=== PATIENT | female | born 1990 | race Caucasian/White ===

== ENCOUNTER 2017-07-25 00:40 | Emergency (ER) | payer OTHER ==
[~2017-07-25] VITALS: Ht 175.3 cm; Wt 95.3 kg
--- OUTSIDE RECORDS SUMMARY | 2017-07-25 00:49 | XMS REPORT ---
Author JODI Sierra [facility] eClinicalWorks Address Unknown Phone Unavailable Care Team Providers Care Frickertron Checker Name Role Phone JODI DAVIS Unavailable Allergies No Known Allergies Problems Problem Type Condition Code Onset Dates Condition Status Assessment Encounter for PPD test V74.1 Active Medications No Known Medications Procedures Procedure Coding System Code Date TB INTRADERMAL TEST CPT-4 62730 Nov 04, 2014 Results Name Result Date Reference Range Unit Abnormality Flag TB INTRADERMAL Summary Purpose eClinicalWorks Submission
--- OUTSIDE RECORDS SUMMARY | 2017-07-25 00:49 | XMS REPORT ---
Author JODI Sierra [facility] eClinicalWorks Address Unknown Phone Unavailable Care Team Providers Care Bio Medical Technician Name Role Phone JODI DAVIS Unavailable Allergies No Known Allergies Problems Problem Type Condition Code Onset Dates Condition Status Problem Obesity E66.9 Active Problem Irregular periods N92.6 Active Problem Well woman exam Z01.419 Active Assessment Encounter for immunization Z23 Active Medications No Known Medications Procedures Procedure Coding System Code Date SINGLE IMMUNIZATION ADMIN CPT-4 61913 Nov 10, 2015 FLUARIX QUAD P-FREE 3 AND UP .50 2015 CPT-4 81866 Nov 10, 2015 Results No Known Results Immunizations Vaccine Administration Date FLUARIX QUAD P-FREE 3 AND UP .50 2015Nov 10, 2015 Summary Purpose eClinicalWorks Submission
--- OUTSIDE RECORDS SUMMARY | 2017-07-25 00:49 | XMS REPORT ---
Author JODI Sierra [facility] eClinicalWorks Address Unknown Phone Unavailable Care Team Providers Care Rehab Trainer Name Role Phone JODI DAVIS CP Unavailable Allergies, Adverse Reactions, Alerts Substance Reaction Event Type Penicillin V Potassium hives Drug Allergy Problems Problem Type Condition Code Onset Dates Condition Status Assessment Thyroid disorder screen Z13.29 Active Assessment Obesity E66.9 Active Assessment Irregular menses N92.6 Active Medications No Known Medications Procedures Procedure Coding System Code Date COMPREHEN METABOLIC PANEL CPT-4 06999 Feb 11, 2015 GLYCATED HEMOGLOBIN TEST CPT-4 66935 Feb 11, 2015 COMPLETE CBC W/AUTO DIFF WBC CPT-4 69842 Feb 11, 2015 ASSAY THYROID STIM HORMONE CPT-4 90683 Feb 11, 2015 LIPID PANEL CPT-4 46840 Feb 11, 2015 VENIPUNCT, ROUTINE* CPT-4 53539 Feb 11, 2015 Office Visit, Est Pt., Level 3 CPT-4 92305 Feb 11, 2015 Vital Signs Date/Time: Feb 11, 2015 Temperature 99.5 F Weight 237.4 lbs Height 66.5 in BMI 37.74 Index Blood Pressure Diastolic 82 mmHg Blood Pressure Systolic 118 mmHg Cardiac Monitoring Heart Rate 92 bpm Results No Known Results Summary Purpose eClinicalWorks Submission
--- OUTSIDE RECORDS SUMMARY | 2017-07-25 00:49 | XMS REPORT ---
Author Author SADNEE PERALTA Organization eClinicalWorks Address Unknown Phone Unavailable Care Team Providers Care Grading Supervisor Name Role Phone SANDEE PERALTA CP Unavailable Allergies No Known Allergies Problems Problem Type Condition Code Onset Dates Condition Status Assessment Encounter for immunization Z23 Active Medications No Known Medications Procedures Procedure Coding System Code Date SINGLE IMMUNIZATION ADMIN CPT-4 07600 Dec 18, 2014 FLUARIX QUAD (3 & UP)-GSK-2014 CPT-4 29691 Dec 18, 2014 Results No Known Results Immunizations Vaccine Administration Date FLUARIX QUAD (3 & UP)-GSK-2014Dec 18, 2014 Summary Purpose eClinicalWorks Submission
--- OUTSIDE RECORDS SUMMARY | 2017-07-25 00:49 | XMS REPORT ---
Author Author TANYA Hendrix Organization [facility] Address [address] [place] [address] Care Team Providers Care Stock Roller Name Role Phone TANYA Hendrix Unavailable PROBLEMS Type Condition ICD9-CM Code [id number] Code Onset Dates Condition Status SNOMED Code Problem Well woman exam Z01.419 Active 067261983 Problem Obesity E66.9 Active 947451621 Problem Irregular periods N92.6 Active 41826257 ALLERGIES Substance Reaction Event Type Date Status Penicillin V Potassium hives Drug Allergy Nov, Active ENCOUNTERS Encounter Location Date Diagnosis [facility] [address] [id number] [address] Nov, Acute bacterial conjunctivitis of right eye H10.31 [facility] [address] [id number][place] [id number] Nov, [facility] [address] [id number], [place] [id number] Oct, Encounter for immunization Z23 [facility] [address] [id number], [place] [phone] Oct, Visit for TB skin test Z11.1 [facility] [address] [id number], [place] [phone] Nov, Encounter for immunization Z23 [facility] [address] [id number], [place] [id number] Mar, [facility] [address] [id number][place] [id number] Mar, Well woman exam Z01.419 ; Obesity E66.9 and Irregular periods N92.6 [facility] [address] [id number], [place] [id number] Feb, Irregular menses N92.6 ; Thyroid disorder screen Z13.29 and Obesity E66.9 [facility] [address] [id number][place] [id number] Dec, Encounter for immunization Z23 [facility] [address] [id number], [place] [id number] 30 Oct, 2014 Encounter for PPD test V74.1 [facility] FLORESMASSEY [address] [place] [address] [id number], [place] [phone] Oct, Encounter for PPD test V74.1 [facility] [address] [place] [address] [place] [id number], [place] [id number] Oct, School physical exam V70.5 [facility] [address]ach[address] [place] [address] [place] [id number][place] [phone] Sep, Initiation of OCP (BCP) V25.01 IMMUNIZATIONS No Known Immunizations SOCIAL HISTORY Never Assessed REASON FOR VISIT right eye itching and burning and red. been like this for 2 days. pt reports it has green tinged crust in it and was matted shut this am. [email or web address] PLAN OF CARE Activity Details Follow Up prn Reason: VITAL SIGNS Height 66.5 in 2016-11-14 Weight 235.6 lbs 2016-11-14 Temperature 97.9 degrees Fahrenheit 2016-11-14 Heart Rate 80 bpm 2016-11-14 Respiratory Rate 20 2016-11-14 BMI 37.45 kg/m2 2016-11-14 Blood pressure systolic 118 mmHg 2016-11-14 Blood pressure diastolic 76 mmHg 2016-11-14 MEDICATIONS Medication Instructions Dosage Frequency Start Date End Date Duration Status Polytrim 59598-8.1 UNIT/ML Ophthalmic Four times a day 1 drop into affected eye 6h Nov, Nov, 7 days Active RESULTS No Results PROCEDURES No Known procedures INSTRUCTIONS MEDICATIONS ADMINISTERED No Known Medications MEDICAL (GENERAL) HISTORY Type Description Date Hospitalization History childbirth only
--- OUTSIDE RECORDS SUMMARY | 2017-07-25 00:50 | XMS REPORT ---
Author JODI Sierra [facility] eClinicalWorks Address Unknown Phone Unavailable Care Team Providers Care Clinical Tech Name Role Phone JODI DAVIS CP Unavailable Allergies, Adverse Reactions, Alerts Substance Reaction Event Type Penicillin V Potassium hives Drug Allergy Problems Problem Type Condition Code Onset Dates Condition Status Problem Obesity E66.9 Active Problem Irregular periods N92.6 Active Problem Well woman exam Z01.419 Active Assessment Irregular periods N92.6 Active Assessment Well woman exam Z01.419 Active Assessment Obesity E66.9 Active Medications No Known Medications Procedures Procedure Coding System Code Date Preventive Care Est Pt. Age 18-39 CPT-4 18331 Mar 19, 2015 SPECIMEN HANDLING CPT-4 26671 Mar 19, 2015 Vital Signs Date/Time: Mar 19, 2015 Temperature 98.5 F Weight 236.3 lbs Height 66.5 in BMI 37.56 Index Blood Pressure Diastolic 88 mmHg Blood Pressure Systolic 126 mmHg Cardiac Monitoring Heart Rate 77 bpm Results No Known Results Summary Purpose eClinicalWorks Submission
--- OUTSIDE RECORDS SUMMARY | 2017-07-25 00:50 | XMS REPORT ---
Author Author YOSI BROWN Organization eClinicalWorks Address Unknown Phone Unavailable Care Team Providers Care Jigmaker Name Role Phone YOSI BROWN CP Unavailable Allergies, Adverse Reactions, Alerts Substance Reaction Event Type Penicillin V Potassium hives Drug Allergy Problems Problem Type Condition ICD-9 Code Onset Dates Condition Status Assessment School physical exam V70.5 Active Medications Medication Code System Code Instructions Start Date End Date Status Dosage Sprintec [address] [facility] [address]-12 0.25-35 MG-MCG Orally Once a day Sep 23, 2014 1 tablet Procedures Procedure Coding System Code Date Preventive Care Est Pt. Age 18-39 CPT-4 78340 Oct 16, 2014 Vital Signs Date/Time: Oct 16, 2014 Temperature 97.6 F Weight 222.9 lbs Height 66.5 in BMI 35.43 Index Blood Pressure Diastolic 68 mmHg Blood Pressure Systolic 108 mmHg Cardiac Monitoring Heart Rate 74 bpm Results No Known Results Summary Purpose eClinicalWorks Submission
--- OUTSIDE RECORDS SUMMARY | 2017-07-25 00:50 | XMS REPORT ---
Author Author JODI DAVIS [facility]Nearbuyme TechnologiesMAS[facility] Address [address] [place] [address] Care Team Providers Care Multi Slide Machine Tender Name Role Phone JODI DAVIS Unavailable PROBLEMS Type Condition ICD9-CM Code [id number] Code Onset Dates Condition Status SNOMED Code Problem Irregular periods N92.6 Active 72113187 Problem Obesity E66.9 Active 079703762 Problem Well woman exam Z01.419 Active 235380230 ALLERGIES No Information ENCOUNTERS Encounter Location Date Diagnosis [facility] [address] [facility] [id number] [address] Nov, Acute bacterial conjunctivitis of right eye H10.31 [facility] [address] [id number] [place] [id number] Nov, [facility] [address] [id number] [place] [phone] Oct, Encounter for immunization Z23 [facility] [address] [id number] [place] [phone] Oct, Visit for TB skin test Z11.1 [facility]lass[facility] [address] [id number] [place] [phone] Nov, Encounter for immunization Z23 [facility] [address] [id number] [place] [id number] Mar, [facility] [address] [id number] [place] [phone] Mar, Well woman exam Z01.419 ; Obesity E66.9 and Irregular periods N92.6 [facility] [address] [id number] [place] [id number] Feb, Irregular menses N92.6 ; Thyroid disorder screen Z13.29 and Obesity E66.9 [facility] [address] [id number] [place] [phone] Dec, Encounter for immunization Z23 [facility] [address] [id number] [place] [id number] 30 Oct, 2014 Encounter for PPD test V74.1 [facility] S[facility]THM[facility]ridion [address] [id number] [place] [phone] Oct, Encounter for PPD test V74.1 [facility] SOUTHNearbuyme TechnologiesMASSEY [address] [place] [address] AV [id number] [place] [id number] 11 Oct, 2014 School physical exam V70.5 [facility] SOUTHNearbuyme TechnologiesMASSEY [employer] [place] [address] [place] [id number] [place] [phone] Sep, Initiation of OCP (BCP) V25.01 IMMUNIZATIONS No Known Immunizations SOCIAL HISTORY Never Assessed REASON FOR VISIT Triage Jayshree PALENCIA PLAN OF CARE VITAL SIGNS MEDICATIONS No Known Medications RESULTS No Results PROCEDURES No Known procedures INSTRUCTIONS MEDICATIONS ADMINISTERED No Known Medications MEDICAL (GENERAL) HISTORY Type Description Date Hospitalization History childbirth only
--- OUTSIDE RECORDS SUMMARY | 2017-07-25 00:50 | XMS REPORT ---
Author Author JODI DAVIS [facility] CenterLumi ShanghaiMASSEY Address [address] [place] [address] Care Team Providers Care Die Casting Machine Operator Name Role Phone JODI DAVIS Unavailable PROBLEMS Type Condition ICD9-CM Code MHU51-JM Code Onset Dates Condition Status SNOMED Code Problem Irregular periods N92.6 Active 56033893 Problem Obesity E66.9 Active 766001025 Problem Well woman exam Z01.419 Active 081087521 ALLERGIES No Information ENCOUNTERS Encounter Location Date Diagnosis [facility] [address] [facility] [id number] [address] Nov, Acute bacterial conjunctivitis of right eye H10.31 [facility] [address] [id number], [place] [id number] Nov, [facility] [address] [facility] [address] [id number], [place] [id number] Oct, Encounter for immunization Z23 [facility]ITAL[facility] [address] [facility] [address] [id number], [place] [phone] Oct, Visit for TB skin test Z11.1 [facility]ITAL[facility]endixTER [address] [facility] [address] [id number], [place] [phone] Nov, Encounter for immunization Z23 [facility] [address] [id number], [place] [id number] Mar, [facility] [address] [id number], [place] [id number] Mar, Well woman exam Z01.419 ; Obesity E66.9 and Irregular periods N92.6 [facility] [address] [id number], [place] [phone] Feb, Irregular menses N92.6 ; Thyroid disorder screen Z13.29 and Obesity E66.9 [facility] [address] [facility] [address] [id number], [place] [phone] Dec, Encounter for immunization Z23 [facility]PITALHIGINIO [facility] [address] [facility] [address] [id number], [place] [id number] 30 Oct, 2014 Encounter for PPD test V74.1 [facility]OSPITALLumi ShanghaiMASSEY [address] [facility] [address] [id number], [place] [id number] 28 Oct, 2014 Encounter for PPD test V74.1 [facility] HOSPITALLumi ShanghaiMASSEY [address] [place] [address] [place] [id number], [place] [id number] 11 Oct, 2014 School physical exam V70.5 [facility]OSPITALLumi ShanghaiMASSEY [employer] [place] [address] AV [id number], [place] [phone] Sep, Initiation of OCP (BCP) V25.01 IMMUNIZATIONS Vaccine Route Administration Date Status FLUARIX QUAD (3 AND UP) 2017 IM Intramuscular Oct 25, 2016 Administered SOCIAL HISTORY Never Assessed REASON FOR VISIT Flu shot Jose PALENCIA PLAN OF CARE VITAL SIGNS MEDICATIONS No Known Medications RESULTS No Results PROCEDURES Procedure Date Ordered Result Body Site FLUARIX QUAD (3 & UP)-GSK-2014Oct 25, 2016 SINGLE IMMUNIZATION ADMIN Oct 25, 2016 INSTRUCTIONS MEDICATIONS ADMINISTERED No Known Medications MEDICAL (GENERAL) HISTORY Type Description Date Hospitalization History childbirth only
--- OUTSIDE RECORDS SUMMARY | 2017-07-25 00:50 | XMS REPORT ---
Author Author JODI DAVIS [facility] Power MagicMASSEY Address [address] [place] [address] Care Team Providers Care Unindentured Apprentice Name Role Phone JODI DAVIS Unavailable PROBLEMS Type Condition ICD9-CM Code IDO60-WO Code Onset Dates Condition Status SNOMED Code Problem Irregular periods N92.6 Active 31743506 Problem Obesity E66.9 Active 187400987 Problem Well woman exam Z01.419 Active 639664484 ALLERGIES No Information ENCOUNTERS Encounter Location Date Diagnosis [facility] LIMAYohobuy [facility] [address] [facility] [id number], [place] [address] Nov, Acute bacterial conjunctivitis of right eye H10.31 [facility]ES[facility] [address] [id number] GARD[place], [place] [id number] Nov, [facility] [address] [id number] [place]ARD[place] [id number] Oct, Encounter for immunization Z23 [facility]ENTERSuperSonic ImagineTER [address] [id number] GARDEN, [place] [id number] Oct, Visit for TB skin test Z11.1 [facility]ENTERSuperSonic ImagineTER [address] [id number] GARDEN, [place] [phone] Nov, Encounter for immunization Z23 [facility] [address] [id number] [place] [id number] Mar, [facility] [address] [id number] GARDEN, [place] [phone] Mar, Well woman exam Z01.419 ; Obesity E66.9 and Irregular periods N92.6 [facility] [address] [id number] GARDEN[place] [id number] Feb, Irregular menses N92.6 ; Thyroid disorder screen Z13.29 and Obesity E66.9 [facility] [address] [id number] GARDEN[place] [phone] Dec, Encounter for immunization Z23 [facility]ENTERHIGINIO [address] [id number] [place]ARD[place], [place] [id number] 30 Oct, 2014 Encounter for PPD test V74.1 [facility] LIMASurya Power MagicMASSEY [address] [id number] [place]ARDEN, [place] [phone] Oct, Encounter for PPD test V74.1 [facility] LIMASurya Power MagicMASSEY [address] [place] [address] [place] [id number] [place]ARDEN, [place] [id number] 11 Oct, 2014 School physical exam V70.5 [facility] LIMASurya Power MagicMASSEY [employer] [place] [address] [place] [id number] [place]ARD[place], [place] [id number] Sep, Initiation of OCP (BCP) V25.01 IMMUNIZATIONS No Known Immunizations SOCIAL HISTORY Never Assessed REASON FOR VISIT TB Skin test. Jayshree PALENCIA PLAN OF CARE Activity Details Follow Up 48-72 hours Reason: VITAL SIGNS MEDICATIONS No Known Medications RESULTS No Results PROCEDURES Procedure Date Ordered Result Body Site TB INTRADERMAL 2016-10-23 N/A TB INTRADERMAL TEST Oct 23, 2016 INSTRUCTIONS MEDICATIONS ADMINISTERED No Known Medications MEDICAL (GENERAL) HISTORY Type Description Date Hospitalization History childbirth only
[2017-07-25] MEDS ORDERED: CEFDINIR 300 MG (OMNICEF) CAP PO ONE (01:15)
[2017-07-25] MEDS ORDERED: PRD10T PO (01:18)
[2017-07-25] MEDS ORDERED: CEFD300C3 PO (01:18)
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
[2017-07-25 01:36] VITALS: BP 133/82
== END 2017-07-25 01:36 | disposition home or self-care (01) ==
LOC: ER 00:45
DX: J02.9 Acute pharyngitis, unspecified (principal); Z88.0 Allergy status to penicillin
CPT/HCPCS: 99283